=== PATIENT | male | born 1975 | race Caucasian/White ===

== ENCOUNTER 2016-07-20 10:32 | Emergency (ER) | payer SELFPAY ==
[~2016-07-20] VITALS: Ht 177.8 cm; Wt 104.3 kg
== END 2016-07-20 11:50 | disposition short-term general hospital (02) ==
LOC: ER 10:32 → RT 10:33 → ER 10:33
DX: R07.89 Other chest pain (principal); R06.00 Dyspnea, unspecified; Z87.891 Personal history of nicotine dependence; J44.9 Chronic obstructive pulmonary disease, unspecified; Z88.8 Allergy status to other drugs, medicaments and biological substances

== ENCOUNTER 2016-09-22 07:46 | Emergency (ER) | payer SELFPAY ==
[~2016-09-22] VITALS: Ht 177.8 cm; Wt 104.3 kg
== END 2016-09-22 10:05 | disposition short-term general hospital (02) ==
LOC: ER 07:46
DX: K52.9 Noninfective gastroenteritis and colitis, unspecified (principal); K21.9 Gastro-esophageal reflux disease without esophagitis; I10 Essential (primary) hypertension; F41.9 Anxiety disorder, unspecified; F32.9 Major depressive disorder, single episode, unspecified; Z90.49 Acquired absence of other specified parts of digestive tract; Z98.890 Other specified postprocedural states; Z79.899 Other long term (current) drug therapy; Z91.030 Bee allergy status; Z88.8 Allergy status to other drugs, medicaments and biological substances
CPT/HCPCS: J2405